=== PATIENT | female | born 1985 | race Caucasian/White ===

== ENCOUNTER → 2016-04-28 | Outpatient (CLI) | payer BC, OTHER ==
--- NOTE | 2016-04-28 12:13 | REP ---
Obstetric sonography: History: Supervision of , for anatomy. Findings: Scanning through the gravid uterus demonstrates a viable single intrauterine gestation in a cephalic lie. motion is observed and heart rate is recorded at 139 beats per minute. A posterior grade 0 placenta is seen without evidence of previa. Amniotic fluid is subjectively normal. Closed cervical length is 5.9 cm measured transabdominally. No extrauterine abnormality is observed. No anomaly is seen. heart visualization is less than optimal due to position. The following additional anatomic structures are identified and felt to be sonographically unremarkable: cranium, choroid plexus, cavum, cerebellum and posterior fossa, face and profile, lungs, diaphragm, left-sided stomach, abdominal wall cord insertion, three-vessel umbilical cord, kidneys and bladder, spine, upper and lower extremities. Biometry chart: BPD 4.3 cm 19 weeks 0 days Head circumference 16.8 cm 19 weeks 3 days Abdominal circumference 15.2 cm 20 weeks 3 days Femur length 3.2 cm 20 weeks 1 day Humeral length 3.2 cm 20 weeks 4 days Cerebellar diameter 2.0 cm 19 weeks 3 days HC/AC ratio normal 1.11. Cephalic index 0.69 (0.70-0.86). Estimated weight 334 grams, 0 pounds 11 ounces, 79th percentile for 19 weeks 2 days. Impression: Viable single intrauterine gestation 19 weeks 6 days by today's composite sonographic criteria. AMITA by today's sonography September 16, 2016. Less than optimal visualization of heart structures due to position. Otherwise anatomic survey is unremarkable. Signed by Romero Andrew MD 04/28/2016 01:43 P
== END ==
LOC: M RAD 10:45
PROVIDERS: ATTEND Specialist
DX: Z34.82 Encounter for supervision of other normal pregnancy, second trimester (principal)

== ENCOUNTER → 2016-05-16 | Outpatient (CLI) | payer BC, OTHER ==
--- NOTE | 2016-05-16 10:57 | REP ---
Obstetric sonography: History: Supervision of , followup anatomy. Comparison study April 28, 2016. Findings: Scanning demonstrates a viable single intrauterine gestation in a cephalic lie. motion is observed and heart rate is recorded at 144 beats per minute. A posterior grade 1 placenta is seen without evidence of previa or abruption. Amniotic fluid is subjectively normal. Closed cervical length is 5.1 cm, measured transabdominally. No extrauterine abnormality is observed. There has been appropriate interval growth since prior study. Umbilical cord is seen draping across the shoulders. Four-chamber heart and left and right ventricular outflow tract views are obtained today and are felt to be normal. The following additional anatomic structures are identified again and felt to be unremarkable as well: cranium, choroid plexus, cavum, cerebellum and posterior fossa, face and profile, lungs, diaphragm, left-sided stomach, abdominal wall cord insertion, three-vessel umbilical cord, kidneys and bladder, spine, upper and lower extremities. Biometry chart: BPD 5.3 cm 22 weeks 0 days Head circumference 20.4 cm 22 weeks 4 days Abdominal circumference 16.7 cm 21 weeks 5 days Femur length 4.1 cm 23 weeks 2 days Humeral length 3.9 cm 23 weeks 6 days HC/AC ratio normal 1.22. Cephalic index normal 0.70. Estimated weight 502 grams, 1 pound 1 ounce, 62nd percentile for 21 week 6 days. Impression: Viable single intrauterine gestation at 22 weeks 5 days by today's composite sonographic criteria. There has been appropriate interval growth. Expected gestational age estimate based on prior sonography is 22 weeks 3 days. AMITA by prior sonography is September 16, 2016. anatomic survey is felt to be complete. Signed by Romero Andrew MD 05/16/2016 12:33 P
== END ==
LOC: M RAD 09:39
PROVIDERS: ATTEND Obstetrics & Gynecology
DX: Z34.82 Encounter for supervision of other normal pregnancy, second trimester (principal)

== ENCOUNTER → 2016-06-07 | Outpatient (REF) | payer BC, OTHER | LOC: M LAB REF 16:51 | PROVIDERS: ATTEND Advanced Practice Midwife | DX: Z34.02 Encounter for supervision of normal first pregnancy, second trimester (principal) ==

== ENCOUNTER → 2016-06-15 | Outpatient (CLI) | payer BC, OTHER ==
[2016-06-15 18:44] LABS: MEAN CORPUSCULAR HEMOGLOBIN 29.6 pg (27.0-33.0); MEAN CORPUSCULAR HGB CONC 33.1 g/dl (32.0-36.5); MEAN CORPUSCULAR VOLUME 89.5 fl (80.0-96.0); RED CELL DISTRIBUTION WIDTH 12.6 % (11.5-14.5); WHITE BLOOD COUNT 13.4 K/mm3 (4.0-10.0)
== END ==
LOC: M WUC 11:25
PROVIDERS: ATTEND Advanced Practice Midwife
DX: Z34.02 Encounter for supervision of normal first pregnancy, second trimester (principal)

== ENCOUNTER → 2016-08-25 | Outpatient (REF) | payer OTHER | LOC: M LAB REF 13:11 | PROVIDERS: ATTEND Specialist | DX: Z34.03 Encounter for supervision of normal first pregnancy, third trimester (principal) ==

== ENCOUNTER → 2016-09-01 | Outpatient (REF) | payer OTHER | LOC: M LAB REF 13:14 | PROVIDERS: ATTEND Advanced Practice Midwife | DX: Z34.03 Encounter for supervision of normal first pregnancy, third trimester (principal) ==

== ENCOUNTER 2016-09-16 07:27 | Outpatient (CLI) | payer OTHER ==
[~2016-09-16] VITALS: Ht 162.6 cm; Wt 90.0 kg
[2016-09-16 07:47] VITALS: BP 124/87
[2016-09-16] MEDS ORDERED: PRENTAB9 PO (07:56)
[2016-09-16 09:28] VITALS: BP 117/73
== END 2016-09-16 09:35 | disposition home or self-care (01) ==
LOC: M LDO 07:27
PROVIDERS: ATTEND Obstetrics & Gynecology
DX: O47.1 False labor at or after 37 completed weeks of gestation (principal); Z3A.39 39 weeks gestation of pregnancy; Z88.0 Allergy status to penicillin

== ENCOUNTER 2016-09-16 21:55 | Inpatient (IN) | payer BC, OTHER ==
[~2016-09-16] VITALS: Ht 162.6 cm; Wt 89.0 kg
[~2016-09-16 21:55] MED LIST: PRENTAB9 PO
[2016-09-16 22:11] VITALS: BP 119/69
[2016-09-17] VITALS (11 sets, daily range): BP systolic 100–141; BP diastolic 58–81
[2016-09-17] MEDS ORDERED: MORPHINE 2 MG/ML 1ML SYRINGE IV ONE (00:15)
[2016-09-17] MEDS ORDERED: LR 1,000 ML IV SCH ×2 (06:15→13:32)
[2016-09-17] MEDS ORDERED: LACTATED RINGER'S 1000 ML IV STA ×2 (06:15→13:32)
[2016-09-17] MEDS: LR 1,000 ML IV SCH (06:25)
[2016-09-17] MEDS ORDERED: BUTORPHANOL 2 MG/ML INJ (J0595) IV ONE (06:30)
[2016-09-17] MEDS ORDERED: PROMETHAZINE INJ 25 MG/ML VIAL (J2550) IV ONE (06:30)
[2016-09-17] MEDS ORDERED: OXYTOCIN DRIP 30 UNITS in APPROPRIATE DILUENT 1 EA IV SCH ×2 (13:45→23:21)
[2016-09-17 13:59] LABS: MEAN CORPUSCULAR HEMOGLOBIN 27.9 pg (27.0-33.0); MEAN CORPUSCULAR HGB CONC 33.5 g/dl (32.0-36.5); MEAN CORPUSCULAR VOLUME 83.2 fl (80.0-96.0); RED CELL DISTRIBUTION WIDTH 13.7 % (11.5-14.5); WHITE BLOOD COUNT 18.7 K/mm3 (4.0-10.0)
[2016-09-17] MEDS ORDERED: FENTANYL 2MCG/ML ROPIVACAINE 0.2% IN 0.9% NACL 200ML IVBAG As Ordered ONE (14:19)
[2016-09-17] MEDS ORDERED: REFRIGERATOR IV KEYS XX PRN (15:00)
[2016-09-17] MEDS ORDERED: ePHEDrine SULFATE 25 MG/5 ML(5MG/ML) SYRINGE IV PRN (15:00)
[2016-09-17] MEDS ORDERED: EPIDURAL COMMENT XX SCH (15:00)
[2016-09-17] MEDS ORDERED: FENTANYL/ROPIVACAINE/NACL BAG 200 ML EPIDURAL SCH (15:00)
[2016-09-17] MEDS ORDERED: LACTATED RINGER'S 1000 ML IV PRN (15:00)
[2016-09-17] MEDS ORDERED: EPIDURAL/PCA KEYS XX PRN (15:00)
[2016-09-17] MEDS ORDERED: ONDANSETRON 4MG/2ML VIAL (J2405) IV PRN ×2 (15:00→23:30)
[2016-09-17] MEDS ORDERED: NALOXONE INJ 0.4 MG/1 ML VIAL (J2310) IV PRN (15:00)
[2016-09-17] MEDS ORDERED: diphenhydrAMINE INJ 50MG/ML VIAL (J1200) IV PRN (15:00)
[2016-09-17] MEDS ORDERED: DOCUSATE SODIUM 100 MG CAP PO PRN (23:30)
[2016-09-17] MEDS ORDERED: MEASLES,MUMPS,RUBELLA VACCINE INJ (MMR-II) (90707) SC SCH (23:30)
[2016-09-17] MEDS ORDERED: DIBUCAINE 1% OINTMENT 30GM TOP PRN (23:30)
[2016-09-17] MEDS ORDERED: PROMETHAZINE 25 MG TAB PO PRN (23:30)
[2016-09-17] MEDS ORDERED: RHOGAM 300 MCG (1500 IU) INJ (J2790) IM SCH (23:30)
[2016-09-18 00:05] VITALS: BP 104/55
[2016-09-18 00:20] VITALS: BP 107/59
[2016-09-18 00:35] VITALS: BP 122/71
[2016-09-18 01:25] VITALS: BP 122/67
[2016-09-18 06:06] VITALS: BP 104/62
[2016-09-18] MEDS: IBUPROFEN 800 MG TAB PO PRN ×2 (08:05→16:30)
[2016-09-18] MEDS: PRENATAL VITAMIN TAB PO SCH (08:18)
[2016-09-18] MEDS: ACETAMINOPHEN 500 MG TAB PO PRN ×2 (11:06→20:49)
[2016-09-18 18:00] VITALS: BP 117/73
[2016-09-18] MEDS: LR 1,000 ML IV SCH (22:30)
[2016-09-19] MEDS: IBUPROFEN 800 MG TAB PO PRN (00:10)
[2016-09-19] MEDS: ACETAMINOPHEN 500 MG TAB PO PRN (05:37)
[2016-09-19 06:35] VITALS: BP 119/73
[2016-09-19] MEDS: LR 1,000 ML IV SCH (06:45)
[2016-09-19] MEDS: PRENATAL VITAMIN TAB PO SCH (09:16)
[2016-09-19] MEDS ORDERED: COLA100C3 PO (09:17)
[2016-09-19] MEDS ORDERED: IBUP-1114 PO (09:17)
[2016-09-19] MEDS ORDERED: ACET50TA PO (09:17)
== END 2016-09-19 11:05 | disposition home or self-care (01) | DRG 560 ==
LOC: M LDO 21:55 → M LDI 09-17 12:46 → M OBS 09-18 01:10
PROVIDERS: ADMIT Obstetrics & Gynecology; ATTEND Obstetrics & Gynecology
PROC: 10E0XZZ Delivery of Products of Conception, External Approach (ICD-10-PCS; principal; 2016-09-17)
PROC: 0KQM0ZZ Repair Perineum Muscle, Open Approach (ICD-10-PCS; 2016-09-17)
DX: O69.2XX0 Labor and delivery complicated by other cord entanglement, with compression, not applicable or unspecified (principal); O70.1 Second degree perineal laceration during delivery; Z88.0 Allergy status to penicillin; Z37.0 Single live birth; Z3A.39 39 weeks gestation of pregnancy; Z86.14 Personal history of Methicillin resistant Staphylococcus aureus infection

== ENCOUNTER → 2016-11-23 | Outpatient (REF) | payer OTHER ==
[~2016-11-23] MED LIST changes: +ACET50TA PO; +COLA100C5 PO; +IBUP-1114 PO
== END ==
LOC: M LAB REF 17:36
PROVIDERS: ATTEND Obstetrics & Gynecology
DX: Z12.4 Encounter for screening for malignant neoplasm of cervix (principal)

== ENCOUNTER → 2021-05-25 | Outpatient (REF) | payer OTHER ==
[~2021-05-25] MED LIST changes: -ACET50TA PO; +MAPA500T2 PO
== END ==
LOC: M SFHCWAGY 17:21
PROVIDERS: ATTEND Obstetrics & Gynecology
DX: Z12.4 Encounter for screening for malignant neoplasm of cervix (principal)
CPT/HCPCS: 87624; G0123